=== PATIENT | female | born 1940 | race Caucasian/White ===

== ENCOUNTER 2017-02-21 14:20 | Inpatient (IN) | payer MEDICARE, OTHER ==
[2017-02-21 15:51] LABS: PTT 24.2 SEC (22.9-36.1); Prothrombin Time 13.5 SEC (12.0-14.7)
[2017-02-21 15:55] LABS: ALT (SGPT) 17 U/L (8-55); AST (SGOT) 19 U/L (5-34); Alkaline Phosphatase 57 U/L (40-150); Anion Gap 14 mmol/L (10-20); BUN (Urea Nitrogen) 24 mg/dL (9.8-20.1); Bilirubin, Total 0.2 mg/dL (0.2-1.2); Calc. Creatinine Clearance 0 mL/min (70-130); Calcium 9.4 mg/dL (7.8-10.44); Carbon Dioxide 25 mmol/L (23-31); Chloride 102 mmol/L (98-107); Estimated GFR-MDRD 54; Globulin 2.3 g/dL (2.4-3.5); Protein, Total 6.4 g/dL (6.0-8.3)
[2017-02-21 15:56] LABS: Troponin I Less than 0.010 ng/mL (< 0.028)
--- NOTE | 2017-02-21 16:17 | RAD ---
SINGLE VIEW OF THE CHEST: Comparison: None. History: Chest pain. FINDINGS: Single view of the chest shows normal sized cardiomediastinal silhouette. The patient is status post sternotomy. There is no evidence of consolidation, mass, or pleural effusion. IMPRESSION: No evidence of acute cardiopulmonary disease. POS: [facility]
[2017-02-21 17:27] LABS: Hematocrit 28.8 % (36.0-47.0); Mean Platelet Volume 8.6 fL (7.4-10.4); Red Blood Cell (RBC) Count 3.13 mill/uL (4.20-5.40); White Blood Cell (WBC) Count 8.1 thou/uL (4.8-10.8)
[2017-02-21 17:53] LABS: #Basophils 0.1 thou/uL (0.0-0.2); #Eosinphils 0.1 thou/uL (0.0-0.7); #Lymphocytes 2.5 thou/uL (1.20-3.40); #Monocytes 0.8 thou/uL (0.11-0.59); #Neutrophils 4.7 thou/uL (1.40-6.50); %Basophils 1.3 % (0.0-1.0); %Eosinophils 0.6 % (0.0-10.0); %Lymphocytes 30.4 % (21.0-51.0); %Monocytes 9.5 % (0.0-10.0); Anisocytosis SLIGHT = 6-15 cells (100X) (0-5/hpf); Tear Drops SLIGHT = 2-5 cells (100X) (0-1/hpf)
[2017-02-21] MEDS ORDERED: Ondansetron ODT 4 MG TAB SL PRN (21:12)
[2017-02-21] MEDS ORDERED: Sodium Chloride 0.9% 1,000 ML IV SCH (21:12)
[2017-02-21] MEDS ORDERED: Ondansetron HCl/PF 4 MG/2 ML Vial IVP PRN ×2 (21:12→21:37)
[2017-02-21] MEDS ORDERED: Acetaminophen 325 MG TAB PO PRN ×2 (21:12→21:37)
[2017-02-21] MEDS ORDERED: Zolpidem Tartrate 5 MG TAB PO PRN (21:37)
[2017-02-21] MEDS ORDERED: Senokot 8.6 MG TAB PO PRN (21:37)
[2017-02-21] MEDS ORDERED: Mag-Al 1200 mg/1200 mg/30 ML UDCUP PO PRN (21:37)
[2017-02-21] MEDS ORDERED: Ondansetron ODT 4 MG TAB PO PRN (21:37)
[2017-02-21] MEDS ORDERED: Milk Of Magnesia 30 ML UDCUP PO PRN (21:37)
[2017-02-21] MEDS ORDERED: Loperamide HCl 2 MG CAP PO PRN (21:37)
[2017-02-21 21:59] VITALS: BMI 30.6
[2017-02-21] MEDS: Sodium Chloride 0.9% 1,000 ML IV SCH (22:40)
--- NOTE | 2017-02-21 23:35 | HP ---
PRIMARY CARE PHYSICIAN: Dr. Shaw Crenshaw. REASON FOR ADMISSION: Lower GI bleed. HISTORY OF PRESENT ILLNESS: A 76-year-old female with a history of coronary artery disease with CAB G, who presented to the emergency room with complaint of hematochezia. She noticed bright red blood per rectum today. The patient reports that recently she started taking blood thinner medicine with the Plavix and after that she noticed hematochezia. She had this type of problem in past. In November , she had a colonoscopy and she was found with multiple angiodysplastic lesions. At that time, the patient was advised to keep on hold for blood thinner medicine, but patient's primary care decided t o put her on back to antiplatelet medication. The patient had several bowel movements, which was bl oody and that is why she was alarmed about and she came to the emergency room for evaluation. She d enies any hematemesis. She denies any vomiting of blood. She denies any melena. She denies any ch est pain, palpitation. She was feeling vague discomfort in her epigastric region. She denies takin g any NSAID. She denies any UTI symptoms. She denies any syncope, dizziness, chest pain, palpitation or shortnes s of breath. REVIEW OF SYSTEMS: The following complete review of systems was negative, unless otherwise mentione d in the HPI or below: Constitutional: Weight loss or gain, ability to conduct usual activities. Skin: Rash, itching. Eyes: Double vision, pain. ENT/Mouth: Nose bleeding, neck stiffness, pain, tenderness. Cardiovascular: Palpitations, dyspnea on exertion, orthopnea. Respiratory: Shortness of breath, wheezing, cough, hemoptysis, fever or night sweats. Gastrointestinal: Poor appetite, abdominal pain, heartburn, nausea, vomiting, constipation, or diar reji. Genitourinary: Urgency, frequency, dysuria, nocturia. Musculoskeletal: Pain, swelling. Neurologic/Psychiatric: Anxiety, depression. Allergy/Immunologic: Skin rash, bleeding tendency. Please see my HPI for pertinent positives and n egatives. All other review of system reviewed and negative except as mentioned in the HPI. PAST MEDICAL HISTORY: Diverticulitis, Goldberg's esophagus, hypertension, dyslipidemia, gastroesopha geal reflux disease, history of GI bleed in past, chronic low back pain, coronary artery disease wit h history of coronary artery bypass grafting. PAST SURGICAL HISTORY: Triple bypass, bilateral cataract surgery, lens implants, colonoscopy. PAST PSYCHIATRIC HISTORY: Reviewed and negative. SOCIAL HISTORY: The patient drinks alcohol socially. She smokes about 1 pack per day. She denies any other illicit drug abuse. FAMILY HISTORY: No strong family history of premature coronary artery disease, stroke or cancer. ALLERGIES: No known drug allergies. CURRENT HOME MEDICATIONS: Aspirin 81 mg p.o. daily, ferrous sulfate 325 mg p.o. daily, glucosamine 1 capsule p.o. daily, lisinopril 5 mg p.o. daily, Centrum Silver 1 tablet p.o. daily, Ranexa 500 mg p.o. b.i.d., Zocor 40 mg p.o. at bedtime, Spiriva 18 mcg inhalation daily, Ocuvite 1 tablet p.o. b.i .d., Plavix 75 mg p.o. daily, gabapentin 300 mg twice daily, Pepcid 20 mg p.o. b.i.d. EMERGENCY ROOM COURSE: Reviewed. PHYSICAL EXAMINATION: VITAL SIGNS: On arrival, blood pressure 116/68, pulse 84, respiratory rate 18, temperature 98.3, sa turation 99% on room air, weight 73.5 kilograms. GENERAL: The patient is currently alert, awake, in no obvious acute distress. HEAD: Normocephalic, atraumatic. EYES: Pupils are round and reactive to light. Extraocular muscles are intact. ENT: Oropharynx within normal limits. Moist mucous membranes. No oral lesions. No pharyngeal gini thema, no exudate. NECK: Supple. Range of motion is normal. No meningeal signs of irritation. LUNGS: Clear to auscultation without any rhonchi or rales. CARDIAC: S1, S2 regular without any murmur. ABDOMEN: Soft, bowel sounds present, nontender, nondistended. No organomegaly, no mass, no suprapu bic tenderness. GENITOURINARY: The rectal examination done in the emergency room, which showed gross blood in the r ectum. BACK: Unremarkable, no CVA tenderness. EXTREMITIES: Upper extremity: Passive movement of all joints are normal. Lower extremities: No e williams. Good peripheral pulsation. SKIN: No skin rash. HEMATOLOGICAL: No lymphadenopathy. PSYCHIATRIC: Normal affect. SIGNIFICANT LABORATORY DATA AND IMAGING: EKG based on my review, normal sinus rhythm without any ac [place] ischemic changes. Chest x-ray based on my review, no acute cardiopulmonary process, CABG change s. CBC: WBC 8.1, hemoglobin 9.4, platelets 256. INR 1.0. BMP: Sodium 137, potassium 4.1, chlori de 102, carbon dioxide 25, anion gap 14, BUN 24, creatinine 1.01, glucose 119, calcium 9.4. LFT: A ST 19, ALT 17, alkaline phosphatase 57, albumin 4.1, CK-MB 3.6, troponin I less than 0.010. BNP 93. 5. ASSESSMENT AND PLAN: 1. Acute gastrointestinal bleed, most likely this patient has a lower GI bleed, but given patient's epigastric discomfort and elevated BUN and creatinine ratio, she may have underlying upper gastroin testinal bleed. This patient has multiple AV malformation. The patient will be kept in the [facility] for observation. We will consult freight team associate for further evaluation. We will monitor H\T\ H and if her blood count drops below 8, then we will consider blood transfusion. 2. Anemia due to acute blood loss. We will monitor H\T\H and if blood count drops below 8, then we will consider transfusion. 3. Hypertension. We will resume patient's blood pressure medication with lisinopril 5 mg p.o. clinton y. 4. Dyslipidemia. We will continue Zocor 40 mg p.o. at bedtime. 5. Coronary artery disease with history of coronary artery bypass grafting. At this point, because of active bleeding, we will hold on aspirin and Plavix therapy. We will continue Ranexa 500 mg p.o . b.i.d. We will continue lisinopril 5 mg p.o. daily. 6. Tobacco abuse disorder. Smoking cessation counseling given. Healthy lifestyle measures discuss ed with the patient. We will offer nicotine patch if needed. 7. Obesity with BMI of 30, weight loss education given. 8. Gastroesophageal reflux disease. We will continue Pepcid 20 mg IV b.i.d. 9. Code status: The patient is FULL CODE and patient's daughter is surrogate decision maker. Disposition plan based on clinical course. We are expecting patient's stay in hospital more than 2 midnights. Plan of care discussed with the patient in detail.
[2017-02-22] MEDS: Ipratropium Bromide 2.5 ml Neb NEB SCH ×2 (01:06→06:45)
[2017-02-22 06:29] LABS: ALT (SGPT) 17 U/L (8-55); AST (SGOT) 19 U/L (5-34); Alkaline Phosphatase 44 U/L (40-150); Anion Gap 10 mmol/L (10-20); BUN (Urea Nitrogen) 15 mg/dL (9.8-20.1); Bilirubin, Total 0.3 mg/dL (0.2-1.2); Calc. Creatinine Clearance 71 mL/min (70-130); Calcium 8.7 mg/dL (7.8-10.44); Carbon Dioxide 27 mmol/L (23-31); Chloride 106 mmol/L (98-107); Estimated GFR-MDRD 69; Globulin 1.8 g/dL (2.4-3.5); Protein, Total 5.3 g/dL (6.0-8.3)
[2017-02-22 06:48] LABS: #Basophils 0.1 thou/uL (0.0-0.2); #Eosinphils 0.1 thou/uL (0.0-0.7); #Lymphocytes 1.8 thou/uL (1.20-3.40); #Monocytes 0.6 thou/uL (0.11-0.59); #Neutrophils 2.8 thou/uL (1.40-6.50); %Basophils 1.5 % (0.0-1.0); %Eosinophils 1.3 % (0.0-10.0); %Lymphocytes 33.1 % (21.0-51.0); %Monocytes 10.9 % (0.0-10.0); Anisocytosis MODERATE=16-30 cells (100X) (0-5/hpf); Hematocrit 25.9 % (36.0-47.0); Mean Platelet Volume 8.1 fL (7.4-10.4); Polychromasia SLIGHT = 2-3 cells (100X) (0-2/hpf); White Blood Cell (WBC) Count 5.3 thou/uL (4.8-10.8)
[2017-02-22] MEDS ORDERED: Famotidine/PF 20 mg/2ml Vial SLOW IVP SCH (09:00)
[2017-02-22] MEDS: Ferrous Sulfate 325 MG TAB PO SCH (09:31)
[2017-02-22] MEDS: Lisinopril 5 MG TAB PO SCH (09:31)
[2017-02-22] MEDS: Multivitamin W/ Minerals 1 TAB PO SCH (09:32)
[2017-02-22] MEDS ORDERED: Ipratropium Bromide 2.5 ml Neb NEB PRN (11:07)
[2017-02-22 11:53] LABS: Hematocrit 25.9 % (36.0-47.0)
--- NOTE | 2017-02-22 12:14 | PDOC.PN ---
- Subjective Encounter Start Date: 02/22/17 Encounter Start Time: 12:13 Subjective: feels oK.had 1 more bloody Bm this morning -: no hemetemesis - Objective Resuscitation Status: Resuscitation Status FULL:Full Resuscitation MAR Reviewed: Yes Vital Signs & Weight: Vital Signs (12 hours) Temp Pulse Resp BP Pulse Ox 02/22/17 09:31 77 02/22/17 06:45 77 16 99 02/22/17 04:00 98.3 F 79 16 137/62 97 02/22/17 01:06 80 16 99 Weight Weight 162 lb I&O: 02/21/17 02/22/17 02/23/17 06:59 06:59 06:59 Intake Total 240 Balance 240 Result Diagrams: 02/22/17 11:47 02/22/17 05:36 Additional Labs: Microbiology 02/21/17 15:00 Stool - Pending Stool Occult Blood (JUANIS) - Final Laboratory Tests 02/21/17 02/21/17 02/21/17 15:21 15:21 15:22 Hgb 9.4 L CK-MB (CK-2) 3.6 Troponin I Less than 0.010 B-Natriuretic Peptide 93.5 02/22/17 02/22/17 05:36 11:47 Hgb 8.4 L 8.2 L CK-MB (CK-2) Troponin I B-Natriuretic Peptide Phys Exam - Physical Examination Constitutional: NAD HEENT: PERRLA, moist MMs, sclera anicteric, oral pharynx no lesions Neck: no nodes, no JVD, supple, full ROM Respiratory: no wheezing, no rales, no rhonchi, clear to auscultation bilateral Cardiovascular: RRR, no significant murmur, no rub, gallop Gastrointestinal: soft, non-tender, no distention, positive bowel sounds Musculoskeletal: no edema, pulses present Neurological: non-focal, normal sensation, moves all 4 limbs Psychiatric: normal affect, A&O x 3 Skin: no rash Dx/Plan (1) Lower GI bleed Code(s): K92.2 - GASTROINTESTINAL HEMORRHAGE, UNSPECIFIED Status: Acute Comment: H/H stable.Likley due to multiple AVMs (2) Acute blood loss anemia Code(s): D62 - ACUTE POSTHEMORRHAGIC ANEMIA Status: Acute (3) CAD (coronary artery disease) Code(s): I25.10 - ATHSCL HEART DISEASE OF [place] CORONARY ARTERY W/O ANG PCTRS Status: Chronic (4) HTN (hypertension) Code(s): I10 - ESSENTIAL (PRIMARY) HYPERTENSION Status: Chronic Qualifiers: Hypertension type: essential hypertension Qualified Code(s): I10 - Essential (primary) hypertension (5) HLD (hyperlipidemia) Code(s): E78.5 - HYPERLIPIDEMIA, UNSPECIFIED Status: Chronic - Plan DVT proph w/SCDs Awaiting Gi recs. transfuse PRBC if <8.hemodynamically stable. -: discussed Plavix w her. she will stop it untill seen by her reinsurance claim analyst -: Cont CLD.Colonoscopy likley soon. -: repeat H/H in PM and tomorrow * . Review of Systems - Review of Systems Constitutional: negative: Fever, Chills, Sweats, Weakness, Malaise, Other Respiratory: negative: Cough, Dry, Shortness of Breath, Hemoptysis, SOB with Excertion, Pleuritic Pain, Sputum, Wheezing Cardiovascular: negative: Chest Pain, Palpitations, Orthopnea, Paroxysmal Noc. Dyspnea, Edema, Light Headedness, Other Gastrointestinal: negative: Nausea, Vomiting, Abdominal Pain, Diarrhea, Constipation, Melena, Hematochezia, Other Genitourinary: negative: Dysuria, Frequency, Incontinence, Hematuria, Retention , Other Musculoskeletal: negative: Neck Pain, Shoulder Pain, Arm Pain, Back Pain, Hand Pain, Leg Pain, Foot Pain, Other Skin: negative: Rash, Lesions, Edi, Bruising, Other Neurological: negative: Weakness, Numbness, Incoordination, Change in Speech, Confusion, Seizures, Other - Medications/Allergies Allergies/Adverse Reactions: Allergies Allergy/AdvReac Type Severity Reaction Status Date / Time No Known Drug Allergies Allergy Verified 02/21/17 21:56 Medications: Current Medications Acetaminophen (Tylenol) 650 mg PO Q4H PRN PRN Reason: Headache/Fever or Pain Hydrocodone Bitart/Acetaminophen ([place] 5/325) 1 tab PO Q4H PRN PRN Reason: Moderate Pain (4-6) Al Hydroxide/Mg Hydroxide (Maalox) 30 ml PO Q6H PRN PRN Reason: Heartburn or Indigestion Atorvastatin Calcium (Lipitor) 20 mg PO HS AUBRE[facility] Famotidine (Pepcid) 20 mg SLOW IVP Q12HR COUNT INCLUDES THE [facility] Last Admin: 02/22/17 09:32 Dose: 20 mg Ferrous Sulfate (Feosol) 325 mg PO QAM-WM COUNT INCLUDES THE [facility] Last Admin: 02/22/17 09:31 Dose: 325 mg Sodium Chloride (Normal Saline 0.9%) 1,000 mls @ 75 mls/hr IV .[id number] COUNT INCLUDES THE [facility] Last Admin: 02/21/17 22:40 Dose: 1,000 mls Ipratropium [place] (Atrovent) 2.5 ml NEB Q6H PRN PRN Reason: SOB &/or Wheezing Iron/Minerals/Multivitamins (Theragran M) 1 tab PO DAILY COUNT INCLUDES THE [facility] Last Admin: 02/22/17 09:32 Dose: 1 tab Lisinopril (Zestril) 5 mg PO DAILY COUNT [facility]CLUDES THE [facility] Last Admin: 02/22/17 09:31 Dose: 5 mg Loperamide HCl (Imodium) 2 mg PO PRN PRN PRN Reason: Diarrhea/Loose Stools Magnesium Hydroxide (Milk Of Magnesium) 30 ml PO DAILYPRN PRN PRN Reason: Constipation Ondansetron HCl (Zofran Odt) 4 mg PO Q6H PRN PRN Reason: Nausea/Vomiting Ondansetron HCl (Zofran) 4 mg IVP Q6H PRN PRN Reason: Nausea/Vomiting Ranolazine (Ranexa) 500 mg PO BID COUNT INCLUDES THE [facility] Last Admin: 02/22/17 09:31 Dose: 500 mg Senna (Senokot) 2 tab PO HSPRN PRN PRN Reason: Constipation Zolpidem Tartrate (Ambien) 5 mg PO HSPRN PRN PRN Reason: Insomnia
[2017-02-22] MEDS: Sodium Chloride 0.9% 1,000 ML IV SCH (12:45)
--- NOTE | 2017-02-22 18:45 | NM ---
GI BLEEDING STUDY: 02/22/17 HISTORY: GI bleeding. RADIOPHARMACEUTICAL: 28 millicuries technetium 99m tagged red blood cells, IV. VIEWS OBTAINED: Anterior. FINDINGS: Normal activity is seen within the vessels. There is normal increasing activity within the urinary b ladder throughout this study. No focal area of abnormal uptake of radiotracer is seen that conforms to bowel and progresses over t cristin to suggest a GI bleed. IMPRESSION: No scintigraphic findings to suggest active GI bleeding at this time. Followup imaging can be perfor med as indicated or if the patient again has a bleeding episode. POS: [facility]
[2017-02-22] MEDS: HYDROcodone/Acetaminophen 5/325 mg Tablet PO PRN (19:04)
[2017-02-22] MEDS ORDERED: Atorvastatin Calcium 20 MG TAB PO SCH (21:00)
--- NOTE | 2017-02-22 21:28 | CON ---
DATE OF CONSULTATION: 02/22/2017 HISTORY OF PRESENT ILLNESS: The patient is a 76-year-old female who was in her normal sta te of health until the day prior to admission when she developed some rectal bleeding. She said she passed a large amount of blood per rectum. Then, initially it was bright red and then later it bec beverly somewhat darker. She denies any real abdominal pain, denies any nausea or vomiting. The patien t stopped her Plavix about 8 days ago after resuming it 2 weeks ago. Since that time, her hemoglobi n has gradually decreased. She has undergone upper and lower endoscopy in November of this year by Dr. 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 These were not treated with a rgon plasma coagulation as it they were in the cecum and felt to be numerous. She sees Dr. Erik kaur, is a outside contractor sales. PAST MEDICAL HISTORY: Significant for Goldberg's esophagus, gastroesophageal reflux disease, hyperte nsion, hyperlipidemia, coronary artery disease, and status post coronary artery bypass. PAST SURGICAL HISTORY: Includes coronary artery bypass, cataract surgery, EGD and colonoscopy. SOCIAL HISTORY: She does drink socially. She smokes 1 pack per day. ALLERGIES: No known allergies. HOME MEDICATIONS: Include aspirin 81 mg p.o. daily, ferrous sulfate 325 mg p.o. daily, glucosamine/ chondroitin 1 p.o. daily, lisinopril 5 mg p.o. daily, Centrum Silver 1 p.o. daily, Ranexa 500 mg p.o . b.i.d., Zocor 40 mg p.o. at bedtime, Spiriva 18 mcg daily, Ocuvite 1 p.o. b.i.d., Plavix 75 mg p.o . daily, gabapentin 300 mg p.o. b.i.d., Pepcid 20 mg p.o. daily. REVIEW OF SYSTEMS: Constitutional: No fever or chills. No weight loss. Eyes: No blurred vision or double vision. ENT: No sore throat or earaches. Cardiovascular: No chest pain or palpitations . Pulmonary: No shortness of breath, cough or wheezing. Gastrointestinal: See above. Genitourin victor hugo: No hematuria or dysuria. PHYSICAL EXAMINATION: VITAL SIGNS: Temperature 98.5, pulse 78, respirations 18, blood pressure 145/65. HEENT: Unremarkable. NECK: Supple. CHEST: Clear. CARDIOVASCULAR: Regular rate and rhythm. ABDOMEN: Soft, nontender, without organomegaly or masses. Bowel sounds are present and normoactive . RECTAL: Deferred. EXTREMITIES: Normal. NEUROLOGIC: Nonfocal. LABORATORY DATA: Shows a hemoglobin 9.4, hematocrit 28.2, MCV is 91.8. PT is 13.5 with an INR of 1 .0. Chemistries shows glucose 123, total protein 53, and albumin 35. ASSESSMENT: 1. Gastrointestinal bleed-most likely secondary to cecal arteriovenous malformations. 2. Coronary artery disease, on home Plavix-this patient's bleeding has occurred while she is on Raysa vix. She seems to have not had bleeding problems when she is off Plavix. I will discuss with her [facility] outside contractor sales about possibly discontinuation of Plavix. 3. Gastroesophageal reflux disease. 4. Goldberg's esophagus. 5. Coronary artery disease. RECOMMENDATIONS: 1. Discontinue Plavix. 2. Serial H and H. 3. Transfuse for hemoglobin less than 8. 4. Would not perform colonoscopy at this time as she has cecal arteriovenous malformations and thes e are numerous and would be difficult to treat, but we would have to perform a colonoscopy if the bl eeding does not decrease. 5. GI bleeding scan.
[2017-02-23] MEDS: Sodium Chloride 0.9% 1,000 ML IV SCH (05:21)
[2017-02-23 05:51] LABS: Hematocrit 25.9 % (36.0-47.0)
[2017-02-23 06:14] LABS: Anion Gap 11 mmol/L (10-20); BUN (Urea Nitrogen) 7 mg/dL (9.8-20.1); Calc. Creatinine Clearance 78 mL/min (70-130); Calcium 8.2 mg/dL (7.8-10.44); Carbon Dioxide 27 mmol/L (23-31); Chloride 106 mmol/L (98-107); Estimated GFR-MDRD 77
[2017-02-23] MEDS: Multivitamin W/ Minerals 1 TAB PO SCH (08:26)
[2017-02-23] MEDS: Lisinopril 5 MG TAB PO SCH (08:26)
[2017-02-23] MEDS: Ferrous Sulfate 325 MG TAB PO SCH (08:26)
[2017-02-23] MEDS: HYDROcodone/Acetaminophen 5/325 mg Tablet PO PRN (08:33)
[2017-02-23] MEDS ORDERED: Pantoprazole 40 MG VIAL IVP SCH (09:00)
--- NOTE | 2017-02-23 10:16 | PDOC.PN ---
- Subjective Encounter Start Date: 02/23/17 Encounter Start Time: 10:14 Subjective: feels weak and has headache. -: no more bloody stools.no abdominal pain - Objective Resuscitation Status: Resuscitation Status FULL:Full Resuscitation MAR Reviewed: Yes Vital Signs & Weight: Vital Signs (12 hours) Temp Pulse Resp BP Pulse Ox 02/23/17 08:26 87 02/23/17 08:19 98.3 F 87 14 116/64 100 02/23/17 04:00 97.6 F 78 16 133/61 97 Weight Weight 163 lb I&O: 02/22/17 02/23/17 02/24/17 06:59 06:59 06:59 Intake Total 240 1635 Output Total 2350 Balance 240 -715 Result Diagrams: 02/23/17 05:21 02/23/17 05:21 Additional Labs: Laboratory Tests 02/21/17 02/22/17 02/22/17 15:21 05:36 11:47 Hgb 9.4 L 8.4 L 8.2 L 02/22/17 02/23/17 18:38 05:21 Hgb 9.3 L 8.3 L Radiology Reviewed by me: Yes (NM GI scan- no active bleeding) Phys Exam - Physical Examination Constitutional: NAD pale.weak looking HEENT: PERRLA, moist MMs, sclera anicteric, oral pharynx no lesions Neck: no nodes, no JVD, supple, full ROM Respiratory: no wheezing, no rales, no rhonchi, clear to auscultation bilateral Cardiovascular: RRR, no significant murmur Gastrointestinal: soft, non-tender, no distention, positive bowel sounds Musculoskeletal: no edema, pulses present Neurological: non-focal, normal sensation, moves all 4 limbs Psychiatric: normal affect, A&O x 3 Skin: no rash Dx/Plan (1) Lower GI bleed Code(s): K92.2 - GASTROINTESTINAL HEMORRHAGE, UNSPECIFIED Status: Acute Comment: H/H stable.Likley due to multiple AVMs (2) Acute blood loss anemia Code(s): D62 - ACUTE POSTHEMORRHAGIC ANEMIA Status: Acute (3) CAD (coronary artery disease) Code(s): I25.10 - ATHSCL HEART DISEASE OF [place] CORONARY ARTERY W/O ANG PCTRS Status: Chronic (4) HTN (hypertension) Code(s): I10 - ESSENTIAL (PRIMARY) HYPERTENSION Status: Chronic Qualifiers: Hypertension type: essential hypertension Qualified Code(s): I10 - Essential (primary) hypertension (5) HLD (hyperlipidemia) Code(s): E78.5 - HYPERLIPIDEMIA, UNSPECIFIED Status: Chronic - Plan DVT proph w/SCDs will transfuse 1 unit PRBC for symptomatic anemia d/t GIB. -: DC plavix for now untill seen by supervisor newspaper deliveries. -: follow GI recs regardoing discharge.latrice later today -: hemodynmically stable. -: Advance diet. DC IVF * . Review of Systems - Review of Systems Constitutional: Weakness, Malaise. negative: Fever, Chills, Sweats, Other Respiratory: negative: Cough, Dry, Shortness of Breath, Hemoptysis, SOB with Excertion, Pleuritic Pain, Sputum, Wheezing Cardiovascular: negative: Chest Pain, Palpitations, Orthopnea, Paroxysmal Noc. Dyspnea, Edema, Light Headedness, Other Gastrointestinal: negative: Nausea, Vomiting, Abdominal Pain, Diarrhea, Constipation, Melena, Hematochezia, Other Genitourinary: negative: Dysuria, Frequency, Incontinence, Hematuria, Retention , Other Musculoskeletal: negative: Neck Pain, Shoulder Pain, Arm Pain, Back Pain, Hand Pain, Leg Pain, Foot Pain, Other Neurological: negative: Weakness, Numbness, Incoordination, Change in Speech, Confusion, Seizures, Other - Medications/Allergies Allergies/Adverse Reactions: Allergies Allergy/AdvReac Type Severity Reaction Status Date / Time No Known Drug Allergies Allergy Verified 02/21/17 21:56 Medications: Current Medications Acetaminophen (Tylenol) 650 mg PO Q4H PRN PRN Reason: Headache/Fever or Pain Hydrocodone Bitart/Acetaminophen ([place] 5/325) 1 tab PO Q4H PRN PRN Reason: Moderate Pain (4-6) Last Admin: 02/23/17 08:33 Dose: 1 tab Al Hydroxide/Mg Hydroxide (Maalox) 30 ml PO Q6H PRN PRN Reason: Heartburn or Indigestion Atorvastatin Calcium (Lipitor) 20 mg PO [facility] Last Admin: 02/22/17 20:41 Dose: 20 mg Ferrous Sulfate (Feosol) 325 mg PO [facility] Last Admin: 02/23/17 08:26 Dose: 325 mg Ipratropium [place] (Atrovent) 2.5 ml NEB Q6H PRN PRN Reason: SOB &/or Wheezing Iron/Minerals/Multivitamins (Theragran M) 1 tab PO DAILY [facility] Last Admin: 02/23/17 08:26 Dose: 1 tab Lisinopril (Zestril) 5 mg PO DAILY [facility] Last Admin: 02/23/17 08:26 Dose: 5 mg Loperamide HCl (Imodium) 2 mg PO PRN PRN PRN Reason: Diarrhea/Loose Stools Magnesium Hydroxide (Milk Of Magnesium) 30 ml PO DAILYPRN PRN PRN Reason: Constipation Ondansetron HCl (Zofran Odt) 4 mg PO Q6H PRN PRN Reason: Nausea/Vomiting Ondansetron HCl (Zofran) 4 mg IVP Q6H PRN PRN Reason: Nausea/Vomiting Pantoprazole Sodium (Protonix) 40 mg IVP DAILY [facility] Last Admin: 02/23/17 08:26 Dose: 40 mg Ranolazine (Ranexa) 500 mg PO BID [facility] Last Admin: 02/23/17 08:26 Dose: 500 mg Senna (Senokot) 2 tab PO HSPRN PRN PRN Reason: Constipation Zolpidem Tartrate (Ambien) 5 mg PO HSPRN PRN PRN Reason: Insomnia
[2017-02-23 15:43] VITALS: BP 152/76; TEMP 98.3
--- NOTE | 2017-02-23 16:11 | PRG ---
DATE OF SERVICE: 02/23/2017 SUBJECTIVE: The patient has had no bleeding. She is feeling well, eating well, having good bowel m ovements. OBJECTIVE: VITAL SIGNS: Temperature is 98.3, pulse of 63, respiratory rate 16, blood pressure 152/76. HEENT: Unremarkable. NECK: Supple. CHEST: Clear. CARDIOVASCULAR: Regular rate and rhythm. ABDOMEN: Benign. Patient underwent a GI bleeding scan yesterday and was negative. LABORATORY DATA: Shows hemoglobin 8.3, hematocrit 25.9. ASSESSMENT: 1. Gastrointestinal bleed -- combination of cecal arteriovenous malformations and Plavix. 2. Coronary artery disease, on Plavix. 3. Cecal arteriovenous malformations. 4. Anemia secondary to gastrointestinal blood loss. RECOMMENDATIONS: 1. Discontinue off Plavix until the patient can meet with Dr. Erik Courtney. 2. Followup with primary care in 1 week for hemoglobin and hematocrit. 3. Stable for GI standpoint for discharge.
--- NOTE | 2017-02-24 13:04 | DIS ---
DATE OF ADMISSION: 02/21/2017 DATE OF DISCHARGE: 02/23/2017 CONDITION AT THE TIME OF DISCHARGE: Stable and improved. PRIMARY CARE PHYSICIAN: Shaw Crenshaw M.D. DISCHARGE DIAGNOSES: 1. 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 2. Acute blood loss anemia, status post 1 unit packed RBC transfusion. 3. History of coronary artery disease. 4. History of hypertension. 5. History of dyslipidemia. DISCHARGE MEDICATIONS: She will resume her home medications except for Plavix. She is instructed t o hold the Plavix until seen by her online producer, Dr. Erik Courtney. Medications as follows; Spiriva 18 mcg daily, Zocor 40 mg daily, Ranexa 500 p.o. b.i.d., multivitamin daily, lisinopril 5 mg daily, ferrous sulfate 325 mg daily and aspirin 81 mg daily. CONSULTATIONS: Include Gastroenterology, Dr. Lion Reynoso. PROCEDURES DONE IN THE HOSPITAL: Include nuclear medicine GI bleed scan, which was negative for any active bleed. ADMISSION HISTORY: Ms. Obando is a 76-year-old pleasant female with past medical history of GI bleed due to AV malformations and coronary artery disease, being on Plavix; presented to the e mergency room with complaints of hematochezia. She was hemodynamically stable with admission hemogl obin of 9.4. She was admitted to telemetry unit and Gastroenterology was consulted. Serial hemoglo bin and hematocrit were ordered. Please see admission history and physical for further details. Th e patient reported that she recently was restarted on Plavix by her primary care physician, which wa s obviously held at this time during hospitalization. HOSPITAL COURSE: Gastroenterology saw the patient and Dr. Reynoso ordered the GI nuclear medicine scan . She was not deemed a candidate for repeat colonoscopy given the fact that her AVMs were largely i n her cecum and the chances of rebleeding with colonoscopy were higher. GI bleed scan did not show any active bleed. The patient's hemoglobin and hematocrit remained stable with the lowest being 8.2 . She was, however, somewhat symptomatic with anemia and was given 1 unit of packed RBC for weaknes s and dizziness. She did not have any further hematochezia while in the hospital after 1 or 2 episo christine. On the day of discharge, she was hemodynamically stable and was eager to go home and was feeling bet ter and was cleared by Gastroenterology for discharge. She will follow up with her own gastroentero logist, Dr. Goff as an outpatient. She is strongly instructed to not take Plavix anymore until se en by her online producer. Ideally, she should be off of Plavix forever. At this time, she verbalized understanding. She was seen and examined prior to discharge. Please see hospitalist progress note from the date of discharge for further details.
== END 2017-02-23 17:50 | disposition home or self-care (01) | DRG 300 ==
LOC: ERS 14:20 → 2NO 19:30
PROVIDERS: ADMIT Family Medicine; ATTEND Family Medicine
PROC: 30233N1 Transfusion of Nonautologous Red Blood Cells into Peripheral Vein, Percutaneous Approach (ICD-10-PCS; principal; 2017-02-23)
DX: Q27.33 Arteriovenous malformation of digestive system vessel (principal); D62 Acute posthemorrhagic anemia; I10 Essential (primary) hypertension; K21.9 Gastro-esophageal reflux disease without esophagitis; E78.5 Hyperlipidemia, unspecified; K22.70 Barrett's esophagus without dysplasia; I25.10 Atherosclerotic heart disease of native coronary artery without angina pectoris; E66.9 Obesity, unspecified; F17.210 Nicotine dependence, cigarettes, uncomplicated; Z68.30 Body mass index [BMI] 30.0-30.9, adult; Z95.1 Presence of aortocoronary bypass graft; T45.525A Adverse effect of antithrombotic drugs, initial encounter
CPT/HCPCS: 36415; 36430; 71010; 78278; 80048; 80053; 82274; 82553; 83880; 84484; 85014; 85018; 85025; 85610; 85730; 86850; 86900; 86901; 93005; 94640; A9604; C9113; J7644; P9016; S0028

== ENCOUNTER 2018-08-19 11:44 | Outpatient (CLI) | payer MEDICARE, OTHER ==
--- NOTE | 2018-08-19 14:46 | MRI ---
MRI LUMBAR SPINE WITHOUT CONTRAST: INDICATIONS: Spinal stenosis. Low back pain. TECHNIQUE: Multiplanar, multisequential imaging of the lumbar spine obtained. FINDINGS: The lumbar vertebrae maintain normal height and alignment. There are moderate degenerative changes p resent. Osteophytes are seen anteriorly throughout the lumbar spine but are most prominent at the T1 2-L1, L1-L2, and L2-L3 levels. There is loss of disk space with degenerative disk changes. At L1-L2, broad-based disk bulge is present. Facet hypertrophy and posterior epidural fat mildly com press the thecal sac, resulting in mild central canal stenosis. At L2-L3, slight posterior listhesis. No broad-based disk bulge. Facet and ligamentous hypertrophy with posterior epidural fat. Moderate central canal stenosis. Left foraminal stenosis due to asymme tric disk bulge/protrusion projecting to the left, and facet hypertrophy. At L3-L4, broad-based disk bulge. Facet and ligamentous hypertrophy with posterior epidural fat. Mi ld to moderate central canal stenosis. Left foraminal stenosis due to disk bulge and hypertrophic ch amee. At L4-L5, broad-based disk bulge. Facet and ligamentous hypertrophy. Mild to moderate central canal stenosis. Bilateral foraminal stenosis secondary to diffuse disk bulge and facet hypertrophy, more prominent on the right, with a disk osteophyte complex projecting laterally to the right. At L5-S1, broad-based disk bulge flattens the thecal sac. Facet hypertrophy is prominent. Very mild central canal stenosis. Mild bilateral foraminal narrowing and encroachment due to facet hypertroph y. IMPRESSION: Degenerative disk changes throughout the lumbar spine with areas of central canal and foraminal narro wing, as described above. POS: JAEL
== END 2018-08-19 11:45 | disposition home or self-care (01) ==
LOC: BICMRI 11:44
PROVIDERS: ATTEND Nurse Practitioner Family
DX: M48.062 Spinal stenosis, lumbar region with neurogenic claudication (principal); M51.36 Other intervertebral disc degeneration, lumbar region; M48.07 Spinal stenosis, lumbosacral region
CPT/HCPCS: 72148